=== PATIENT | male | born 1995 | race Hispanic/Latino ===

== ENCOUNTER 2019-08-11 19:09 | Emergency (ER) | payer SELFPAY ==
[2019-08-11] MEDS ORDERED: LEVOFLOXACIN 500 MG TABLET ONE (20:12)
[2019-08-11] MEDS ORDERED: KETOROLAC TROMETHAMINE 60 MG/2 ML VIAL ONE (20:13)
[2019-08-11] MEDS ORDERED: TETANUS/DIPHTHERIA TOXOID [ADULT] 0.5 ML VIAL IM ONE (20:14)
== END 2019-08-11 21:24 | disposition home or self-care (01) ==
LOC: EDH 19:09
DX: S61.412A Laceration without foreign body of left hand, initial encounter (principal); S61.411A Laceration without foreign body of right hand, initial encounter; S91.311A Laceration without foreign body, right foot, initial encounter; S91.312A Laceration without foreign body, left foot, initial encounter; L08.9 Local infection of the skin and subcutaneous tissue, unspecified; X58.XXXA Exposure to other specified factors, initial encounter; Y93.89 Activity, other specified; Y92.89 Other specified places as the place of occurrence of the external cause; Y99.8 Other external cause status
CPT/HCPCS: 90471; 90714; 96372; 99284; J1885